=== PATIENT | female | born 1995 | race African-American/Black ===

== ENCOUNTER 2017-04-25 18:27 | Emergency (ER) | payer BC ==
[~2017-04-25] VITALS: Ht 154.9 cm; Wt 45.6 kg
[2017-04-25 18:31] VITALS: Ht 154.9 cm; Wt 45.6 kg
[2017-04-25] MEDS ORDERED: SODIUM CHLORIDE 0.9% 1000ML 1,000 ML IV STA (18:40)
--- NOTE | 2017-04-25 18:47 | EMERGENCY ROOM VISIT NOTE ---
History Report prepared by Zahraa: Albina Grimaldo Under the Supervision of: Dr. Jose Cordero D.O. First contact with patient: 18:34 Chief Complaint: ABDOMINAL PAIN Stated Complaint: FAINT,EXTREME STOMACH PAIN, THROWING UP History of Present Illness The patient is a 21 year old female who presents to the Emergency Room with complaints of intermittent abdominal pain beginning 2 months ago. The patient reports her abdominal pain is mostly right sided and under her ribs. She also notes darkened urine and feeling dizzy. She denies any nausea, vomiting, pelvic pain, vaginal discharge, or swelling in her legs. The patient reports drinking alcohol occasionally. The patient's last menstrual period was last month. She has no active medical problems. Source of History: patient Onset: 2 months ago Position: abdomen Timing: intermittent Associated Symptoms: + urinary symptoms, No nausea, No vomiting Review of Systems See HPI for pertinent positives & negatives. A total of 10 systems reviewed and were otherwise negative. Past Medical & Surgical Medical Problems: (1) No Known Active Medical Problems Family History Patient reports no known family medical history. Social History Smoking Status: Never Smoker Smokeless Tobacco Use: No Alcohol Use: occasionally Marital Status: in relationship Occupation Status: [employer] student Current/Historical Medications Scheduled Pantoprazole (Protonix), 40 MG PO DAILY Allergies Coded Allergies: No Known Allergies (Unverified , 04/25/17) Physical Exam Vital Signs Date Time Temp Pulse Resp B/P (MAP) Pulse Ox O2 Delivery O2 Flow Rate FiO2 04/25/17 21:35 66 20 112/70 100 04/25/17 21:12 81 20 113/74 100 Room Air 04/25/17 18:31 76 16 114/75 95 Room Air Physical Exam GENERAL: Patient is awake, alert, and in no acute distress. Patient is resting comfortably and showing no signs of anxiety EYES: The conjunctivae are clear. The pupils are round and reactive. EARS, NOSE, MOUTH AND THROAT: The nose is without any evidence of any deformity. Mucous membranes are moist tongue is midline NECK: The neck is nontender and supple. RESPIRATORY: Normal respiratory effort is noted there is no evidence of wheezing rhonchi or rales CARDIOVASCULAR: Regular rate and rhythm noted there no murmurs rubs or gallops normal S1 normal S2 GASTROINTESTINAL: The abdomen is soft. Bowel sounds are present in all quadrants. RUQ tenderness to palpation. BACK: No midline tenderness or or step-off noted range of motion in flexion extension as well as rotation no signs of muscle spasm noted MUSCULOSKELETAL/EXTREMITIES: There is no evidence of gross deformity full range of motion is noted in the hips and shoulders SKIN: There is no obvious evidence of any rash. There are no petechiae, pallor or cyanosis noted. NEUROLOGIC: Patient is awake alert and oriented x3 Medical Decision & Procedures ER Provider Diagnostic Interpretation: Radiology results as stated below per my review and radiologist interpretation: CHEST AND ABDOMEN 2 VIEWS FINDINGS: The lungs are clear. The cardiomediastinal silhouette is within normal limits. There is no pneumoperitoneum or pneumatosis. The bowel gas pattern is unremarkable. No evidence for bowel obstruction. No pathologic calcifications. IMPRESSION: No acute cardiopulmonary process. No evidence for bowel obstruction. Electronically signed by: Guero Robbins M.D. ABDOMINAL ULTRASOUND, RIGHT UPPER QUADRANT FINDINGS: Pancreas: The pancreas demonstrates a normal echotexture. Liver: Unremarkable. Gallbladder: No gallbladder wall thickening. No gallstones. CBD: 3 mm. Right kidney: No hydronephrosis. IMPRESSION: No significant abnormality identified within the right upper quadrant. Electronically signed by: Guero Robbins M.D. Laboratory Results 04/25/17 18:50 Red Blood Count 5.32, Mean Corpuscular Volume 82.9, Mean Corpuscular Hemoglobin 28.9, Mean Corpuscular Hemoglobin Concent 34.9, Mean Platelet Volume 12.0, Neutrophils (%) (Auto) 73.7, Lymphocytes (%) (Auto) 20.0, Monocytes (%) (Auto) 5.6, Eosinophils (%) (Auto) 0.3, Basophils (%) (Auto) 0.3, Neutrophils # (Auto) 5.16, Lymphocytes # (Auto) 1.40, Monocytes # (Auto) 0.39, Eosinophils # (Auto) 0.02, Basophils # (Auto) 0.02 04/25/17 18:50 Test 04/25/17 18:50 White Blood Count 7.00 K/uL (4.8-10.8) Red Blood Count 5.32 M/uL (4.2-5.4) Hemoglobin 15.4 g/dL (12.0-16.0) Hematocrit 44.1 % (37-47) Mean Corpuscular Volume 82.9 fL (80-100) Mean Corpuscular Hemoglobin 28.9 pg (25-34) Mean Corpuscular Hemoglobin Concent 34.9 g/dl (32-36) Platelet Count 190 K/uL (130-400) Mean Platelet Volume 12.0 fL (7.4-10.4) Neutrophils (%) (Auto) 73.7 % Lymphocytes (%) (Auto) 20.0 % Monocytes (%) (Auto) 5.6 % Eosinophils (%) (Auto) 0.3 % Basophils (%) (Auto) 0.3 % Neutrophils # (Auto) 5.16 K/uL (1.4-6.5) Lymphocytes # (Auto) 1.40 K/uL (1.2-3.4) Monocytes # (Auto) 0.39 K/uL (0.11-0.59) Eosinophils # (Auto) 0.02 K/uL (0-0.5) Basophils # (Auto) 0.02 K/uL (0-0.2) RDW Standard Deviation 38.1 fL (36.4-46.3) RDW Coefficient of Variation 12.7 % (11.5-14.5) Immature Granulocyte % (Auto) 0.1 % Immature Granulocyte # (Auto) 0.01 K/uL (0.00-0.02) Urine Color YELLOW Urine Appearance CLEAR (CLEAR) Urine pH 5.0 (4.5-7.5) Urine Specific [place] 1.021 (1.000-1.030) Urine Protein 1+ (NEG) Urine Glucose (UA) NEG (NEG) Urine Ketones NEG (NEG) Urine Occult Blood 2+ (NEG) Urine Nitrite NEG (NEG) Urine Bilirubin NEG (NEG) Urine Urobilinogen NEG (NEG) Urine Leukocyte Esterase NEG (NEG) Urine WBC (Auto) 1-5 /hpf (0-5) Urine RBC (Auto) 0-4 /hpf (0-4) Urine Hyaline Casts (Auto) 10-30 /lpf (0-5) Urine Epithelial Cells (Auto) >30 /lpf (0-5) Urine Bacteria (Auto) 2+ (NEG) Urine Yeast (Auto) (NONE PRSENT) Anion Gap 8.0 mmol/L (3-11) Est Creatinine Clear Calc Drug Dose 76.6 ml/min Estimated GFR () 115.1 Estimated GFR (Non- 99.3 BUN/Creatinine Ratio 14.8 (10-20) Calcium Level 10.2 mg/dl (8.5-10.1) Total Bilirubin 0.9 mg/dl (0.2-1) Direct Bilirubin 0.2 mg/dl (0-0.2) Aspartate Amino Transf (AST/SGOT) 22 U/L (15-37) Alanine Aminotransferase (ALT/SGPT) 22 U/L (12-78) Alkaline Phosphatase 71 U/L (45-117) Total Protein 9.6 gm/dl (6.4-8.2) Albumin 5.1 gm/dl (3.4-5.0) Lipase 134 U/L (73-393) Human Chorionic Gonadotropin, Qual NEG (NEG) Laboratory results per my review. Medications Administered Medications (Trade) Dose Ordered Sig/Evan Route Start Time Stop Time Status Last Admin Dose Admin Sodium Chloride 1,000 ml @ 999 mls/hr Q1H1M STAT IV 04/25/17 18:40 04/25/17 19:40 DC 04/25/17 19:00 999 MLS/HR Pantoprazole Sodium (Protonix Tab) 40 mg NOW STAT PO 04/25/17 20:38 04/25/17 20:39 DC 04/25/17 20:51 40 MG Al Hydroxide/Mg Hydroxide (Maalox Susp) 30 ml STK-MED ONCE .ROUTE 04/25/17 20:46 04/25/17 20:47 DC 04/25/17 20:50 30 ML Lidocaine HCl (Viscous Lidocaine 2% Soln) 20 ml STK-MED ONCE .ROUTE 04/25/17 20:47 04/25/17 20:48 DC 04/25/17 20:50 20 ML ED Course 1835: The patient was evaluated in room A11B. A complete history and physical examination were performed. 0: Ordered NSS 1,000 ml @ 999 mls/hr IV 2037: Ordered Protonix Tab 40 mg PO, GI Cocktail 24 ml PO. 2123: Upon reevaluation, the patient is resting comfortably. I discussed the results and treatment plan with her. She verbalized agreement of the treatment plan. The patient was discharged home. Medical Decision Differential diagnosis: Etiologies such as appendicitis, diverticulitis, PUD, biliary pathology, UTI, pancreatitis, obstruction, mesenteric ischemia, aortic pathology, infections, inflammatory bowel disease, renal colic, as well as others were entertained. Nursing notes reviewed. The patient is a 21-year-old female who presented to the emergency department for an evaluation of upper abdominal pain. The patient did not have a physical exam consistent with an acute surgical abdomen. She states that her pain was associated with food so initially I thought her pain could be consistent with cholecystitis or other gallbladder pathology. I discussed the patient's laboratory and radiographic studies with her. She was treated with IV fluids and proton pump inhibitor in the emergency department. She was encouraged to drink plenty of liquids and continue all medications as prescribed. Otherwise she was encouraged to follow-up with her primary care physician is possible for further evaluation and for possible referral to gastroenterology if symptoms do not improve. Otherwise she was encouraged to return to the emergency apartment immediately if symptoms change worsen or the need arises. Blood Pressure Screening Patient's blood pressure: Normal blood pressure Impression Primary Impression: Epigastric abdominal pain Scribe Attestation The scribe's documentation has been prepared under my direction and personally reviewed by me in its entirety. I confirm that the note above accurately reflects all work, treatment, procedures, and medical decision making performed by me. Departure Information Dispostion Home / Self-Care Prescriptions Pantoprazole (Protonix) 40 Mg Tab 40 MG PO DAILY, #30 TAB Prov: Jose Cordero, DO 04/25/17 Referrals No Doctor, Assigned (PCP) Forms HOME CARE DOCUMENTATION FORM, IMPORTANT VISIT INFORMATION Patient Instructions Abdominal Pain, My [facility] Additional Instructions Continue all medications as prescribed. Call your family in the morning to schedule a follow-up appointment. Avoid any spicy fatty or fried foods. Return to the emergency department immediately if symptoms change worsen or the need arises.
[2017-04-25 19:07] LABS: BASO % 0.3 %; BASO ABS # 0.02 K/uL (0-0.2); COMPLETE YES; EOS % 0.3 %; HEMATOCRIT 44.1 % (37-47); IG% 0.1 %; MEAN CELL VOLUME 82.9 fL (80-100); MEAN CORPUSCULAR HEMOGLOBIN 28.9 pg (25-34); MEAN CORPUSCULAR HGB CONC 34.9 g/dl (32-36); MONO % 5.6 %; NEUT % 73.7 %; PLATELET COUNT 190 K/uL (130-400); RED BLOOD COUNT 5.32 M/uL (4.2-5.4)
[2017-04-25 19:26] LABS: BUN/CREATININE RATIO 14.8 (10-20); CALCIUM 10.2 mg/dl (8.5-10.1); CREATININE 0.85 mg/dl (0.60-1.20); POTASSIUM 3.6 mmol/L (3.5-5.1)
[2017-04-25 19:30] LABS: PREG INTERNAL NEGATIVE QC NEG CLEAR BACKGROUND; PREG INTERNAL POSITIVE QC POS CONTROL LINE
[2017-04-25 19:40] LABS: URINE APPEARANCE CLEAR (CLEAR); URINE BILIRUBIN NEG (NEG); URINE COLOR YELLOW; URINE EPITHELIAL CELL AUTO >30 /lpf (0-5); URINE NITRITE NEG (NEG); URINE SPECIFIC GRAVITY 1.021 (1.000-1.030); UROBILINOGEN NEG (NEG)
[2017-04-25 19:43] LABS: MANUAL MICROSCOPIC REQUIRED? NO; REVIEW REQ? YES
--- NOTE | 2017-04-25 20:20 | DIAGNOSTIC IMAGING REPORT ---
ABDOMINAL ULTRASOUND, RIGHT UPPER QUADRANT HISTORY: Generalized abdominal pain.. COMPARISON: None. FINDINGS: Pancreas: The pancreas demonstrates a normal echotexture. Liver: Unremarkable. Gallbladder: No gallbladder wall thickening. No gallstones. CBD: 3 mm. Right kidney: No hydronephrosis. IMPRESSION: No significant abnormality identified within the right upper quadrant. Electronically signed by: Guero Robbins M.D. 04/25/2017 8:19 PM Dictated Date/Time: 04/25/2017 8:18 PM
--- NOTE | 2017-04-25 20:32 | DIAGNOSTIC IMAGING REPORT ---
CHEST AND ABDOMEN 2 VIEWS HISTORY: Generalized abdominal pain. COMPARISON: None. FINDINGS: The lungs are clear. The cardiomediastinal silhouette is within normal limits. There is no pneumoperitoneum or pneumatosis. The bowel gas pattern is unremarkable. No evidence for bowel obstruction. No pathologic calcifications. IMPRESSION: No acute cardiopulmonary process. No evidence for bowel obstruction. Electronically signed by: Guero Robbins M.D. 04/25/2017 8:31 PM Dictated Date/Time: 04/25/2017 8:30 PM
[2017-04-25] MEDS ORDERED: GI COCKTAIL PO STA (20:38)
[2017-04-25] MEDS ORDERED: PANTOprazole SOD 40 MG TAB PO STA (20:38)
[2017-04-25] MEDS ORDERED: ALUMINUM/MAGNESIUM SUSP 30 ML UDC ONE (20:46)
[2017-04-25] MEDS ORDERED: LIDOCAINE HCL 2% VISC SOLN 20 ML UDC ONE (20:47)
[2017-04-25] MEDS ORDERED: PANT40TA PO (21:22)
[2017-04-25 21:35] VITALS: BP 112/70; PULSE 66; O2SAT 100
== END 2017-04-25 21:53 | disposition home or self-care (01) ==
LOC: C.EDB 18:28 → C.EDA 21:53
DX: R10.13 Epigastric pain (principal)

== ENCOUNTER 2017-10-04 15:38 | Emergency (ER) | payer BC, OTHER ==
[~2017-10-04] VITALS: Ht 154.9 cm; Wt 47.0 kg
[~2017-10-04 15:38] MED LIST: PANT40TA PO
[2017-10-04 15:44] VITALS: TEMP 36.8; Ht 154.9 cm; Wt 47.0 kg
[2017-10-04] MEDS ORDERED: ONDANSETRON INJ 2 MG/ML 2 ML VIAL IV STA ×2 (15:55→16:52)
[2017-10-04] MEDS ORDERED: SODIUM CHLORIDE 0.9% 1000ML 2,000 ML IV STA (15:55)
[2017-10-04] MEDS ORDERED: KETOROLAC TROMETHAMINE 30 MG/ML VIAL IV STA (15:55)
[2017-10-04] MEDS ORDERED: PANT40TA PO (16:02)
[2017-10-04 16:43] LABS: BASO % 0.1 %; BASO ABS # 0.01 K/uL (0-0.2); HEMATOCRIT 41.2 % (37-47); HEMOGLOBIN 14.5 g/dL (12.0-16.0); IG# 0.01 K/uL (0.00-0.02); LYMPH % 8.2 %; MEAN CELL VOLUME 80.8 fL (80-100); MEAN CORPUSCULAR HEMOGLOBIN 28.4 pg (25-34); MEAN CORPUSCULAR HGB CONC 35.2 g/dl (32-36); MEAN PLATELET VOLUME 11.3 fL (7.4-10.4); MONO % 4.3 %; MONO ABS # 0.31 K/uL (0.11-0.59); NEUT % 87.3 %; NEUT ABS # 6.36 K/uL (1.4-6.5); PLATELET COUNT 197 K/uL (130-400); RED CELL DISTRIBUTION WIDTH CV 12.5 % (11.5-14.5); RED CELL DISTRIBUTION WIDTH SD 36.4 fL (36.4-46.3); WHITE BLOOD COUNT 7.29 K/uL (4.8-10.8)
[2017-10-04 17:07] LABS: ALBUMIN 4.7 gm/dl (3.4-5.0); CALCIUM 9.5 mg/dl (8.5-10.1); CREATININE 1.09 mg/dl (0.60-1.20); POTASSIUM 3.5 mmol/L (3.5-5.1)
[2017-10-04 17:09] LABS: TOTAL PROTEIN 9.7 gm/dl (6.4-8.2)
[2017-10-04] MEDS ORDERED: ONDA4TAB46 PO (17:14)
--- NOTE | 2017-10-04 17:19 | DIAGNOSTIC IMAGING REPORT ---
ABDOMEN 2VIEW W/PA CHEST RTN HISTORY: 22 years-old Female abd pain acute generalized abdominal pain COMPARISON: Acute abdominal series radiographs 04/25/2017 TECHNIQUE: PA view of the chest with erect and supine views of the abdomen FINDINGS: Cardiomediastinal and hilar silhouettes are within normal limits. There is no pneumothorax, pleural effusion, focal airspace consolidation or overt pulmonary edema. The bones of the chest appear grossly intact. No pneumoperitoneum or pneumatosis. Bowel gas pattern is nonobstructive. No urolith or acute fracture identified. No organomegaly or opaque foreign body. Gas-filled colon is noted. IMPRESSION: 1. No acute processes of the chest. 2. Nonobstructive bowel gas pattern without pneumoperitoneum. The above report was generated using voice recognition software. It may contain grammatical, syntax or spelling errors. Electronically signed by: Cristhian Cline M.D. 10/04/2017 5:18 PM Dictated Date/Time: 10/04/2017 5:16 PM
--- NOTE | 2017-10-04 17:42 | EMERGENCY ROOM VISIT NOTE ---
History Report prepared by Zahraa: Que Canseco Under the Supervision of: Dr. Tomer Tran D.O. First contact with patient: 15:49 Chief Complaint: WEAKNESS Stated Complaint: VERY NEAR FAINTING, NAUSEA, VOMITING History of Present Illness The patient is a 22 year old female who presents to the Emergency Room with complaints of persistent vomiting beginning twelve hours ago. The patient states that she has vomited over 40 times in the last twelve hours. She also complains of dizziness, nausea, and lower abdominal pain. She notes that her abdominal pain feels like a cramp which worsens up until she vomits. She reports that she feels better after she vomits. She denies any fever, CP, urinary symptoms, and recent travel. The patient states that her last normal menstrual period was a week ago. She notes that she does not have a history of abdominal surgeries and does not have any known sick contacts. No recent trips or travel. She is not drinking from streams. Source of History: patient Onset: twelve hours ago Position: abdomen Quality: other (vomiting) Timing: other (persistent) Associated Symptoms: + nausea, + abdominal pain (lower ), No fevers, No chest pain, No urinary symptoms Note: The patient also complains of dizziness. Review of Systems See HPI for pertinent positives & negatives. A total of 10 systems reviewed and were otherwise negative. Past Medical & Surgical Medical Problems: (1) No Known Active Medical Problems Family History Patient reports no known family medical history. Social History Smoking Status: Never Smoker Alcohol Use: occasionally Marital Status: single Occupation Status: [employer] student Current/Historical Medications Scheduled Pantoprazole (Protonix), 40 MG PO DAILY Scheduled PRN Ondansetron Hcl (Zofran), 4 MG PO TID PRN for Nausea Allergies Coded Allergies: No Known Allergies (Unverified , 10/04/17) Physical Exam Vital Signs Date Time Temp Pulse Resp B/P (MAP) Pulse Ox O2 Delivery O2 Flow Rate FiO2 10/04/17 16:58 60 20 90/55 100 Room Air 10/04/17 15:44 36.8 60 20 98/58 95 Room Air Physical Exam GENERAL: Sitting up in bed, alert, dry heaving, disheveled, well nourished, no distress, non-toxic EYE EXAM: normal conjunctiva. OROPHARYNX: no exudate, no erythema, lips, buccal mucosa, and tongue normal and mucous membranes are dry NECK: supple, no nuchal rigidity, no adenopathy, non-tender LUNGS: Clear to auscultation. Normal chest wall mechanics HEART: no murmurs, S1 normal and S2 normal ABDOMEN: abdomen soft, non-tender, normo-active bowel sounds, no masses, no rebound or guarding. BACK: Back is symmetrical on inspection and there is no deformity, no midline tenderness, no CVA tenderness. SKIN: no rashes and no bruising UPPER EXTREMITIES: upper extremities are grossly normal. LOWER EXTREMITIES: No pitting edema. NEURO EXAM: Normal sensorium, cranial nerves II-XII grossly intact, normal speech, no gross weakness of arms, no gross weakness of legs. Medical Decision & Procedures ER Provider Diagnostic Interpretation: Radiology results as stated below per my review and the radiologist's interpretation: ABDOMEN 2VIEW W/PA CHEST RTN FINDINGS: Cardiomediastinal and hilar silhouettes are within normal limits. There is no pneumothorax, pleural effusion, focal airspace consolidation or overt pulmonary edema. The bones of the chest appear grossly intact. No pneumoperitoneum or pneumatosis. Bowel gas pattern is nonobstructive. No urolith or acute fracture identified. No organomegaly or opaque foreign body. Gas-filled colon is noted. IMPRESSION: 1. No acute processes of the chest. 2. Nonobstructive bowel gas pattern without pneumoperitoneum. The above report was generated using voice recognition software. It may contain grammatical, syntax or spelling errors. Electronically signed by: Cristhian Cline M.D. 10/04/2017 5:18 PM Laboratory Results 10/04/17 16:20 Red Blood Count 5.10, Mean Corpuscular Volume 80.8, Mean Corpuscular Hemoglobin 28.4, Mean Corpuscular Hemoglobin Concent 35.2, Mean Platelet Volume 11.3, Neutrophils (%) (Auto) 87.3, Lymphocytes (%) (Auto) 8.2, Monocytes (%) (Auto) 4.3, Eosinophils (%) (Auto) 0.0, Basophils (%) (Auto) 0.1, Neutrophils # (Auto) 6.36, Lymphocytes # (Auto) 0.60, Monocytes # (Auto) 0.31, Eosinophils # (Auto) 0.00, Basophils # (Auto) 0.01 10/04/17 16:20 Test 10/04/17 16:20 10/04/17 17:02 White Blood Count 7.29 K/uL (4.8-10.8) Red Blood Count 5.10 M/uL (4.2-5.4) Hemoglobin 14.5 g/dL (12.0-16.0) Hematocrit 41.2 % (37-47) Mean Corpuscular Volume 80.8 fL (80-100) Mean Corpuscular Hemoglobin 28.4 pg (25-34) Mean Corpuscular Hemoglobin Concent 35.2 g/dl (32-36) Platelet Count 197 K/uL (130-400) Mean Platelet Volume 11.3 fL (7.4-10.4) Neutrophils (%) (Auto) 87.3 % Lymphocytes (%) (Auto) 8.2 % Monocytes (%) (Auto) 4.3 % Eosinophils (%) (Auto) 0.0 % Basophils (%) (Auto) 0.1 % Neutrophils # (Auto) 6.36 K/uL (1.4-6.5) Lymphocytes # (Auto) 0.60 K/uL (1.2-3.4) Monocytes # (Auto) 0.31 K/uL (0.11-0.59) Eosinophils # (Auto) 0.00 K/uL (0-0.5) Basophils # (Auto) 0.01 K/uL (0-0.2) RDW Standard Deviation 36.4 fL (36.4-46.3) RDW Coefficient of Variation 12.5 % (11.5-14.5) Immature Granulocyte % (Auto) 0.1 % Immature Granulocyte # (Auto) 0.01 K/uL (0.00-0.02) Anion Gap 8.0 mmol/L (3-11) Est Creatinine Clear Calc Drug Dose 61.1 ml/min Estimated GFR () 84.6 Estimated GFR (Non- 73.0 BUN/Creatinine Ratio 13.5 (10-20) Calcium Level 9.5 mg/dl (8.5-10.1) Total Bilirubin 1.3 mg/dl (0.2-1) Direct Bilirubin 0.3 mg/dl (0-0.2) Aspartate Amino Transf (AST/SGOT) 26 U/L (15-37) Alanine Aminotransferase (ALT/SGPT) 31 U/L (12-78) Alkaline Phosphatase 72 U/L (45-117) Total Protein 9.7 gm/dl (6.4-8.2) Albumin 4.7 gm/dl (3.4-5.0) Lipase 61 U/L (73-393) Human Chorionic Gonadotropin, Qual NEG (NEG) Urine Color YELLOW Urine Appearance CLEAR (CLEAR) Urine pH 7.5 (4.5-7.5) Urine Specific [place] 1.020 (1.000-1.030) Urine Protein 1+ (NEG) Urine Glucose (UA) NEG (NEG) Urine Ketones 1+ (NEG) Urine Occult Blood TRACE (NEG) Urine Nitrite NEG (NEG) Urine Bilirubin NEG (NEG) Urine Urobilinogen NEG (NEG) Urine Leukocyte Esterase NEG (NEG) Urine RBC 0-4 /hpf (0-4) Urine WBC 1-5 /hpf (0-5) Urine Epithelial Cells >30 /lpf (0-5) Urine Bacteria NEG (NEG) Urine Test NEG (NEG) Laboratory results per my review. Medications Administered Medications (Trade) Dose Ordered Sig/Evan Route Start Time Stop Time Status Last Admin Dose Admin Sodium Chloride 2,000 ml @ 999 mls/hr Q2H1M STAT IV 10/04/17 15:55 10/04/17 17:55 DC 10/04/17 15:55 999 MLS/HR Ondansetron HCl (Zofran Inj) 4 mg NOW STAT IV 10/04/17 15:55 10/04/17 15:56 DC 10/04/17 16:22 4 MG Ketorolac Tromethamine (Toradol Inj) 30 mg NOW STAT IV 10/04/17 15:55 10/04/17 15:56 DC 10/04/17 16:22 30 MG Ondansetron HCl (Zofran Inj) 4 mg NOW STAT IV 10/04/17 16:52 10/04/17 16:53 DC 10/04/17 16:52 4 MG ED Course ED COURSE: Vital signs were reviewed and showed that the patient was hypotensive. The patients medical record was reviewed The above diagnostic studies were performed and reviewed. ED treatments and interventions as stated above. 1550: The patient was evaluated in room C3. A complete history and physical examination was performed. 1555: Toradol Inj 30mg IV, Zofran Inj 4mg IV, Sodium Chloride 2000 ml @ 999 mls/ hr IV 1650: I reevaluated and updated the patient. She is currently feeling great and would like to go home. She notes that her abdominal cramping has resolved. The patient still needs to provide a urine specimen. 1651: Zofran Inj 4mg IV 1809: Upon reevaluation, the patient is stable. I discussed my findings with the patient and she understands and agrees with the treatment plan. Based on the patients age, coexisting illnesses, exam and lab findings the decision to treat as an outpatient was made. The patient remained stable while under my care. The patient appeared well at the time of discharge. Medical Decision Differential diagnoses includes but is not limited to gastritis, peptic ulcer disease, GERD, gallbladder disease, pancreatitis, small bowel obstruction, acute coronary syndrome, pericarditis, ischemic bowel, irritable bowel disease, irritable bowel syndrome, appendicitis, diverticulitis, malignancy, hernia, urinary tract infection, torsion, /ectopic , perforation, trauma, infectious. Patient is a 22-year-old female who presents the ER for nausea vomiting which started abruptly about 12 hours ago. She notes she gets crampy abdominal pain and that has to vomit. She has been unable to keep anything down. No recent trips travel or drinking from streams. Abdominal exam is benign. No vaginal bleeding vaginal discharge. is negative. CBC along with BMP, LFTs, bilirubin lipase was fairly unremarkable. She was slightly hypertensive with systolics in the 90s but with her weight being 47 kg I do believe that this is normal for her. She was given IV fluids 2 L and Zofran. After the Zofran Toradol she had near complete resolution of her symptoms and request to be discharged. Her UA was still not back but she was agreeable with waiting for this. UA results and was unremarkable. Patient was discharged with Zofran and instructed to follow-up with PCP as an outpatient with nausea and vomiting. Discussed with Pt concerning signs and symptoms to watch out for. Pt was instructed to follow up with their PCP and discussed with the patient their option to return to the ED at anytime for persistent or worsening symptoms. The appropriate anticipatory guidance and out-patient management, including indications for return to the emergency department, were explained at length to the patient and understood. Medication Reconcilliation Current Medication List: was personally reviewed by me Blood Pressure Screening Patient's blood pressure: Low blood pressure Blood pressure disposition: Did not require urgent referral Impression Primary Impression: Vomiting Additional Impression: Nausea Scribe Attestation The scribe's documentation has been prepared under my direction and personally reviewed by me in its entirety. I confirm that the note above accurately reflects all work, treatment, procedures, and medical decision making performed by me. Departure Information Dispostion Home / Self-Care Prescriptions Ondansetron Hcl (ZOFRAN) 4 Mg Tab 4 MG PO TID Y for Nausea, #20 TAB Prov: Tomer Tran, DO 10/04/17 Referrals No Doctor, Assigned (PCP) Forms HOME CARE DOCUMENTATION FORM, IMPORTANT VISIT INFORMATION Patient Instructions My [facility] Additional Instructions Please follow up with your primary care doctor or if you are a student, [facility] with in the next 24 hours. Any worsening of your symptoms, please return to the ED immediately. This includes any fevers greater than 100.4, worsening pain, chest pain, shortness breath, persistent nausea, vomiting, unable to eat or drink, or any other concerning signs or symptoms from your standpoint. Please take Zofran as needed for nausea. Problem Qualifiers Primary Impression: Vomiting Vomiting type: unspecified Vomiting Intractability: intractable Nausea presence: with nausea Qualified Codes: R11.2 - Nausea with vomiting, unspecified
[2017-10-04 18:16] VITALS: BP 108/59; PULSE 84; O2SAT 100
== END 2017-10-04 18:39 | disposition home or self-care (01) ==
LOC: C.EDB 15:40 → C.EDC 18:39
DX: R11.2 Nausea with vomiting, unspecified (principal)